=== PATIENT | male | born 1955 | race Caucasian/White ===

== ENCOUNTER → 2024-10-09 | Outpatient (CLI) | payer MEDICARE ==
[2024-10-09] MEDS: LEXISCAN IV ONE (09:30)
== END | disposition home or self-care (01) ==
LOC: RAD 07:21
PROVIDERS: ATTEND Internal Medicine
DX: I70.203 Unspecified atherosclerosis of native arteries of extremities, bilateral legs (principal); R07.89 Other chest pain; R42 Dizziness and giddiness; G80.8 Other cerebral palsy
CPT/HCPCS: 78452; 93925; 76770; 93922; 93017; J2785; A9500